=== PATIENT | female | born 1980 | race Caucasian/White ===

== ENCOUNTER 2021-11-29 19:11 | Emergency (ER) | payer OTHER ==
[~2021-11-29] VITALS: Ht 162.6 cm; Wt 81.8 kg
[~2021-11-29 19:11] MED LIST: BCP TD; CARAFATE 1GM1 G PO; DEXILANT PO; MICRO-K 1010 MEQ PO; MOTRIN600 MG PO; NORCO 325 MG-51 TAB PO; PERCOCET 325 MG1 TAB PO; PHENERGAN 25 TA25 MG; PHENERGAN 25 TA25 MG PO; PRILOTC PO; PROBIOTIC FORMU1 CAP PO; SYNTHROID0.05 MG/TA PO; TYLENOL 325MG325 MG PO; ULTRAM 50MG TAB50 MG PO; URISED1 TA1 PO; ZANTAC 150MG T150 MG PO; ZOFRAN 4MG T4 MG/TAB PO
[2021-11-29 19:44] LABS: BASO # 0.1 K/mm3 (0.0-0.2); BASO % 0.8 % (0.0-2.0); EOS # 0.3 K/mm3 (0.0-0.7); EOS % 2.6 % (0.0-4.0); GRAN # 6.6 K/mm3 (1.4-6.5); GRAN % 66.5 % (42.2-75.2); HEMATOCRIT 35.7 % (37.0-47.0); LYMPH # 2.4 K/mm3 (1.2-3.4); LYMPH % 24.5 % (20.0-51.0); MEAN CELL VOLUME 92 fl (80.0-100.0); MEAN CORPUSCULAR HEMOGLOBIN 31 pg (27-31); MEAN CORPUSCULAR HGB CONC 34 g/dl (33.0-37.0); MEAN PLATELET VOLUME 8.7 fl (7.4-10.4); MONO # 0.5 K/mm3 (0.1-0.6); MONO % 5.2 % (1.7-9.3); PLATELET COUNT 350 K/mm3 (130-400); REDCELL DISTRIBUTION WIDTH-CV 12.4 % (11.5-14.5)
[2021-11-29 19:59] LABS: ALBUMIN 4.3 gm/dL (3.5-5.0); BILIRUBIN,TOTAL 0.4 mg/dL (0.2-1.2); CALCIUM 8.9 mg/dL (8.4-10.2); CREATININE, serum 0.82 mg/dL (0.57-1.11); POTASSIUM 3.9 mmol/L (3.5-4.5); TOTAL PROTEIN 7.4 gm/dL (6.2-8.1)
[2021-11-29 21:19] LABS: COLLECTION METHOD CLEAN CATCH
[2021-11-29 21:25] LABS: MUCOUS Present (NOT PRESENT); PH 6 (5-8); SQUAMOUS EPITHELIAL 0-2 /hpf (0-10); URINE APPEARANCE Clear (CLEAR/HAZY); URINE BACTERIA Rare /hpf (NONE SEEN); URINE BILIRUBIN Negative (NEGATIVE); URINE BLOOD 2+ (NEGATIVE); URINE COLOR Straw (YELLOW); URINE GLUCOSE Negative (NEGATIVE); URINE KETONE Trace (NEGATIVE); URINE LEUKOCYTE ESTERASE Negative (NEGATIVE); URINE NITRATE Negative (NEGATIVE); URINE PROTEIN(semi-quant) Negative (NEGATIVE); URINE UROBILINOGEN Negative (NEGATIVE)
[2021-11-29 21:30] VITALS: TEMP 98.4
[2021-11-29 21:38] VITALS: BP 133/74; PULSE 89
== END 2021-11-29 21:40 | disposition home or self-care (01) ==
LOC: COL.ER 19:11
PROVIDERS: Physician Assistant
DX: N83.202 Unspecified ovarian cyst, left side (principal); Z90.721 Acquired absence of ovaries, unilateral; Z90.710 Acquired absence of both cervix and uterus; Z90.49 Acquired absence of other specified parts of digestive tract; Z32.02 Encounter for pregnancy test, result negative
CPT/HCPCS: J1885; J2270; J2405; Q9967